=== PATIENT | female | born 1985 | race Caucasian/White ===

== ENCOUNTER 2020-10-15 14:37 | Emergency (ER) | payer OTHER ==
[~2020-10-15 14:37] MED LIST: CEFUROXIME500 MG PO; IBUPROFEN800 MG PO; PENVEE K 500 M500 MG PO
[2020-10-15] MEDS ORDERED: OMNICEF 300 MG300 MG PO ×2 (15:05→15:13)
== END 2020-10-15 15:15 | disposition home or self-care (01) ==
LOC: ER1 14:37
DX: H66.91 Otitis media, unspecified, right ear (principal); E07.9 Disorder of thyroid, unspecified; F17.210 Nicotine dependence, cigarettes, uncomplicated; Z79.899 Other long term (current) drug therapy
CPT/HCPCS: 99282